=== PATIENT | female | born 2000 | race Caucasian/White ===

== ENCOUNTER 2024-08-15 06:51 | Inpatient (IN) | payer OTHER ==
[~2024-08-15] VITALS: Ht 162.6 cm; Wt 63.0 kg
[2024-08-15] VITALS (11 sets, daily range): BP systolic 112–146; BP diastolic 69–95
[2024-08-15] MEDS ORDERED: FentaNYL 2mcg/ml-Bup 0.1% Epd 250 ML EPI PRN (07:55)
[2024-08-15] MEDS ORDERED: Oxytocin 10 Unit / ML Vial IM PRN (07:55)
[2024-08-15] MEDS ORDERED: Carboprost Tromethamine 250 MCG/ML 1ML Amp IM PRN (07:55)
[2024-08-15] MEDS ORDERED: Lactated Ringer's 1,000 ML IV SCH ×2 (07:55)
[2024-08-15] MEDS ORDERED: Misoprostol 200 MCG Tab PR PRN (07:55)
[2024-08-15] MEDS ORDERED: Lactated Ringer's 1,000 ML IV PRN (07:55)
[2024-08-15] MEDS ORDERED: Methylergonovine Maleate 0.2MG / ML 1ML Amp IM PRN (07:55)
[2024-08-15] MEDS ORDERED: Acetaminophen 500 MG Tab PO PRN (07:55)
[2024-08-15] MEDS ORDERED: OXYTOCIN/RINGER'S LACTATE 500 ML IV PRN (07:55)
[2024-08-15] MEDS ORDERED: Ondansetron HCl 2 MG / ML 2ML Vial IV PRN (07:55)
[2024-08-15] MEDS ORDERED: Misoprostol 200 MCG Tab BC PRN (07:55)
[2024-08-15] MEDS ORDERED: ePHEDrine Sulfate 50 MG/ML 1ML Injection XX PRN (07:55)
[2024-08-15] MEDS ORDERED: Penicillin G Potassium 5,000,000 UNITS in NS 250 ML IV ONE (08:00)
[2024-08-15] MEDS ORDERED: Calcium Carbonate 500 MG Tab Chew PO SCH (08:00)
[2024-08-15] MEDS ORDERED: Lactated Ringer's 1,000 ML IV ONE (08:01)
[2024-08-15 08:02] LABS: BASOPHILS ABSOLUTE AUTO 0.04 K/mm3 (0.00-0.23); BASOPHILS PERCENT AUTO 0 % (0-2); EOSINOPHILS ABSOLUTE AUTO 0.06 K/mm3 (0.00-0.68); EOSINOPHILS PERCENT AUTO 1 % (0-6); Hematocrit 34.2 % (33.0-51.0); Hemoglobin 11.9 g/dL (11.5-16.0); IMMATURE GRAN PERCENT AUTO 1 % (0-1); LYMPHOCYTES ABSOLUTE AUTO 1.66 K/mm3 (0.84-5.20); LYMPHOCYTES PERCENT AUTO 18 % (21-46); MONOCYTES ABSOLUTE AUTO 1.11 K/mm3 (0.16-1.47); MONOCYTES PERCENT AUTO 12 % (4-13); Mean Corpuscular HGB 31.6 pg (26.0-34.0); Mean Corpuscular HGB Conc 34.8 g/dL (31.5-36.5); Mean Corpuscular Volume 91 fL (80-100); Mean Platelet Volume 11.3 fL (9.1-12.4); NEUTROPHILS ABSOLUTE AUTO 6.25 K/mm3 (1.96-9.15); NEUTROPHILS PERCENT AUTO 68 % (41-73); Platelet Count 161 K/mm3 (150-400); RDW Coefficient Variation 12.9 % (11.7-14.2); Red Blood Cell Count 3.77 M/mm3 (3.80-5.20); White Blood Cell Count 9.22 K/mm3 (4.00-11.30)
[2024-08-15] MEDS ORDERED: PRENATAL TABLE1 EAC2 PO (08:12)
[2024-08-15] MEDS ORDERED: Tranexamic Acid 1,000 MG in NS 100 ML IV SCH (08:15)
[2024-08-15] MEDS ORDERED: Penicillin G Potassium 2,500,000 UNITS in Dextrose 5% 100 ML IV SCH (12:30)
[2024-08-15] MEDS ORDERED: OXYTOCIN/RINGER'S LACTATE 500 ML IV SCH (20:20)
[2024-08-16] VITALS (38 sets, daily range): BP systolic 106–157; BP diastolic 58–89
[2024-08-16] MEDS ORDERED: ePHEDrine Sulfate 50 MG/ML 1ML Injection IV PRN (00:50)
[2024-08-16] MEDS ORDERED: Ondansetron HCl 2 MG / ML 2ML Vial IV PRN (00:50)
[2024-08-16] MEDS ORDERED: DiphenhydrAMINE HCl 50 MG/ML 1ML Vial IV PRN (00:50)
[2024-08-16] MEDS ORDERED: Naloxone HCl 0.4MG / ML 1ML Vial IV PRN (00:50)
[2024-08-16] MEDS ORDERED: Metoclopramide HCl 5MG / ML 2ML Vial IV PRN (00:50)
[2024-08-16] MEDS ORDERED: Lactated Ringer's 1,000 ML IV SCH (05:55)
[2024-08-16] MEDS ORDERED: Ketorolac Tromethamine 30mg Vial IV PRN (05:55)
[2024-08-16] MEDS ORDERED: Witch Hazel/Glycerin PADS TOP PRN (06:00)
[2024-08-16] MEDS ORDERED: Oxytocin 10 Unit / ML Vial IM ONE (06:00)
[2024-08-16] MEDS ORDERED: Misoprostol 200 MCG Tab PR PRN (06:00)
[2024-08-16] MEDS ORDERED: Docusate Sodium 100 MG Cap PO PRN (06:00)
[2024-08-16] MEDS ORDERED: Ibuprofen 400 MG Tab PO PRN (06:00)
[2024-08-16] MEDS ORDERED: FLU VACC TS2024-25(6MOS UP)/PF 45 MCG/0.5 ML SYRINGE IM ONE (06:00)
[2024-08-16] MEDS ORDERED: OXYTOCIN/RINGER'S LACTATE 500 ML IV SCH (06:00)
[2024-08-16] MEDS ORDERED: Acetaminophen 325 MG TABLET PO PRN (06:05)
[2024-08-16] MEDS ORDERED: Measles/Mumps/Rubella Vaccine 0.5 ML Vial SC ONE (06:05)
[2024-08-16] MEDS ORDERED: Benzocaine Topical Anesthetic Spray 60GM TOP PRN (06:05)
[2024-08-16] MEDS ORDERED: Diphth,Pertuss(Acell),Tet Vac 0.5 ML VIAL IM ONE (06:05)
[2024-08-16] MEDS ORDERED: Methylergonovine Maleate 0.2MG / ML 1ML Amp IM PRN (06:05)
[2024-08-16] MEDS ORDERED: Acetaminophen/Codeine 300-30 mg PO PRN (06:05)
[2024-08-16] MEDS ORDERED: Prenatal Vit/FE Fumarate/FA 1 Tab PO SCH (09:00)
[2024-08-17 03:47] VITALS: BP 134/78
[2024-08-17 07:07] LABS: BASOPHILS ABSOLUTE AUTO 0.05 K/mm3 (0.00-0.23); BASOPHILS PERCENT AUTO 0 % (0-2); EOSINOPHILS ABSOLUTE AUTO 0.08 K/mm3 (0.00-0.68); EOSINOPHILS PERCENT AUTO 1 % (0-6); Hematocrit 33.4 % (33.0-51.0); Hemoglobin 11.2 g/dL (11.5-16.0); IMMATURE GRAN ABSOLUTE AUTO 0.07 K/mm3 (0.00-0.10); IMMATURE GRAN PERCENT AUTO 1 % (0-1); LYMPHOCYTES ABSOLUTE AUTO 2.17 K/mm3 (0.84-5.20); LYMPHOCYTES PERCENT AUTO 17 % (21-46); MONOCYTES ABSOLUTE AUTO 0.93 K/mm3 (0.16-1.47); MONOCYTES PERCENT AUTO 7 % (4-13); Mean Corpuscular HGB 31.6 pg (26.0-34.0); Mean Corpuscular HGB Conc 33.5 g/dL (31.5-36.5); Mean Corpuscular Volume 94 fL (80-100); NEUTROPHILS ABSOLUTE AUTO 9.48 K/mm3 (1.96-9.15); NEUTROPHILS PERCENT AUTO 74 % (41-73); Platelet Count 143 K/mm3 (150-400); RDW Coefficient Variation 12.9 % (11.7-14.2); RDW Standard Deviation 44.3 fL (35.1-46.3); Red Blood Cell Count 3.54 M/mm3 (3.80-5.20); White Blood Cell Count 12.78 K/mm3 (4.00-11.30)
[2024-08-17 09:12] VITALS: BP 136/78
[2024-08-17 12:14] VITALS: BP 136/88
[2024-08-17] MEDS ORDERED: IBUP800 PO (14:51)
[2024-08-17 17:22] VITALS: BP 132/79
== END 2024-08-17 18:00 | disposition home or self-care (01) | DRG 807 ==
LOC: OBS 06:51 → BC 07:29
PROVIDERS: ADMIT Registered Nurse Community Health
PROC: 10E0XZZ Delivery of Products of Conception, External Approach (ICD-10-PCS; principal; 2024-08-16)
PROC: 0HQ9XZZ Repair Perineum Skin, External Approach (ICD-10-PCS; principal; 2024-08-16)
DX: O69.1XX0 Labor and delivery complicated by cord around neck, with compression, not applicable or unspecified (principal); Z37.0 Single live birth; O70.0 First degree perineal laceration during delivery; Z3A.37 37 weeks gestation of pregnancy
CPT/HCPCS: 36415; 51702; 85025; 86850; 86900; 86901; A9270; J1885; J2405; J2540; J2590; J7050; J7120